=== PATIENT | female | born 1930 | race Caucasian/White ===

== ENCOUNTER → 2019-05-29 | Outpatient (CLI) | payer MEDICARE ==
[~2019-05-29] MED LIST: IOHEXOL-350 50ML VIAL IV ONE
== END | disposition home or self-care (01) ==
LOC: RAH 08:56
PROVIDERS: ATTEND Internal Medicine
DX: M47.22 Other spondylosis with radiculopathy, cervical region (principal); M47.814 Spondylosis without myelopathy or radiculopathy, thoracic region; I70.0 Atherosclerosis of aorta; M48.04 Spinal stenosis, thoracic region; M25.78 Osteophyte, vertebrae; M48.02 Spinal stenosis, cervical region
CPT/HCPCS: 72127; 72130; Q9967

== ENCOUNTER → 2021-07-11 | Outpatient (CLI) | payer MEDICARE ==
[~2021-07-11] MED LIST changes: +IOHEXOL 350 MG/ML 100ML INFUS..BTL IV ONE
== END | disposition home or self-care (01) ==
LOC: RAH 08:04
PROVIDERS: ATTEND Psychiatry & Neurology Neurology
DX: G31.9 Degenerative disease of nervous system, unspecified (principal); J44.9 Chronic obstructive pulmonary disease, unspecified; K57.30 Diverticulosis of large intestine without perforation or abscess without bleeding; R59.0 Localized enlarged lymph nodes; I51.7 Cardiomegaly
CPT/HCPCS: 70470; 71260; 74177; Q9967 ×2

== ENCOUNTER 2021-08-01 15:42 | Emergency (ER) | payer MEDICARE ==
[~2021-08-01] VITALS: Ht 160 cm; Wt 74.8 kg
[2021-08-01] MEDS ORDERED: LACTULOSE 20 GM/30 ML UDCUP PO ONE (16:00)
[2021-08-01 16:38] LABS: BASOPHILS % (AUTO) 0.3 % (0.0-5.0); EOSINOPHILS % (AUTO) 0.6 % (0.0-8.0); HEMATOCRIT 36.9 % (36-48); MEAN CORPUSCULAR HGB CONC 33.3 g/dL (32.0-36.0); MEAN CORPUSCULAR VOLUME 92.9 fL (79-99); MONOCYTES % (AUTO) 10.1 % (3.0-13.0); NEUTROPHILS % (AUTO) 83.6 % (40.0-77.0); PLATELET COUNT (AUTO) 223 K/uL (130-400); RED BLOOD CELL COUNT(AUTO) 3.97 MIL/uL (4.00-5.50); RED CELL DISTRIBUTION WIDTH 13.3 % (11.0-15.5); WHITE BLOOD COUNT (AUTO) 10.8 K/uL (4.8-10.8)
[2021-08-01 16:56] LABS: CARBON DIOXIDE 27 mmol/L (21-32); CHLORIDE 103 mmol/L (101-111); CREATININE 1.5 mg/dL (0.5-1.5); GLOMERULAR FILTR. RATE CALC 35 mL/min (>60); GLUCOSE,RANDOM 102 mg/dL (70-105); POTASSIUM 4.4 mmol/L (3.5-5.1); SODIUM SERUM 140 mmol/L (136-145); UREA NITROGEN, BLOOD 29 mg/dL (7-18)
[2021-08-01 17:00] LABS: ALANINE AMINOTRANSFERASE 21 U/L (12-78); ALBUMIN 3.3 g/dL (3.5-5.0); ASPARTATE AMINOTRANSFERASE 13 U/L (10-37); BILIRUBIN,TOTAL 0.6 mg/dL (0.2-1.0); TOTAL PROTEIN, SERUM 6.9 g/dL (6.0-8.3)
[2021-08-01 17:01] LABS: LIPASE < 50 U/L (114-286)
[2021-08-01 18:00] VITALS: BP 136/78
[2021-08-01] MEDS ORDERED: DICY20TA2 PO (18:03)
[2021-08-01] MEDS ORDERED: LACT10SO9 PO (18:03)
== END 2021-08-01 18:25 | disposition home or self-care (01) ==
LOC: EDH 15:42
DX: K59.00 Constipation, unspecified (principal); I48.91 Unspecified atrial fibrillation; Z88.5 Allergy status to narcotic agent
CPT/HCPCS: 36415; 74176; 80053; 83690; 85025

== ENCOUNTER 2021-08-04 10:37 | Inpatient (IN) | payer MEDICARE ==
[~2021-08-04] VITALS: Ht 160 cm; Wt 84.1 kg
[~2021-08-04 10:37] MED LIST changes: +DICY20TA2 PO; -IOHEXOL 350 MG/ML 100ML INFUS..BTL IV ONE; -IOHEXOL-350 50ML VIAL IV ONE; +LACT10SO9 PO
[2021-08-04 11:15] LABS: BASOPHILS % (AUTO) 0.3 % (0.0-5.0); EOSINOPHILS % (AUTO) 0.9 % (0.0-8.0); HEMATOCRIT 35.9 % (36-48); LYMPHOCYTES % (AUTO) 3.6 % (21.0-51.0); MEAN CORPUSCULAR HEMOGLOBIN 31.1 pg (27.0-33.0); MEAN CORPUSCULAR HGB CONC 33.4 g/dL (32.0-36.0); MONOCYTES % (AUTO) 8.8 % (3.0-13.0); NEUTROPHILS % (AUTO) 85.9 % (40.0-77.0); PLATELET COUNT (AUTO) 245 K/uL (130-400); RED BLOOD CELL COUNT(AUTO) 3.86 MIL/uL (4.00-5.50); WHITE BLOOD COUNT (AUTO) 10.6 K/uL (4.8-10.8)
[2021-08-04 11:20] LABS: CREATININE 1.9 mg/dL (0.5-1.5); POTASSIUM 4.4 mmol/L (3.5-5.1)
[2021-08-04 11:58] LABS: APPEARANCE,URINE TURBID (CLEAR); BILIRUBIN,URINE SMALL (NEGATIVE); GLUCOSE, URINE (UA) NEGATIVE (NEGATIVE); KETONES,URINE 5 mg/dL (NEGATIVE); LEUKOCYTE ESTERASE ,URINE NEGATIVE (NEGATIVE); NITRATE,URINE POSITIVE (NEGATIVE); OCCULT BLOOD,URINE LARGE (NEGATIVE); PH,URINE 6.5 (5.0-8.0); PROTEIN,URINE >=300 mg/dL (NEGATIVE); UROBILINOGEN,URINE 0.2 mg/dL (0.2-1.0)
[2021-08-04 12:00] LABS: COLOR,URINE RED (YELLOW)
[2021-08-04 12:02] LABS: ALBUMIN 3.3 g/dL (3.5-5.0); BILIRUBIN,TOTAL 0.4 mg/dL (0.2-1.0); TOTAL PROTEIN, SERUM 7.1 g/dL (6.0-8.3)
[2021-08-04 12:04] LABS: RBC,URINE TNTC /HPF (0-1)
[2021-08-04 12:05] LABS: BACTERIA,URINE Rare /HPF (None Seen); SQUAMOUS EPITHELIAL CELL,UR Rare /HPF (0-2)
[2021-08-04 13:24] LABS: INR 3.48 (0.85-1.15); PROTHROMBIN TIME 33.9 SEC (9.6-11.6)
[2021-08-04 13:25] LABS: PARTIAL THROMBOPLASTIN TIME 68.4 SEC (26.3-35.5)
[2021-08-04] MEDS ORDERED: WARF-57 PO (14:27)
[2021-08-04] MEDS ORDERED: WARF7.5T49 PO (14:27)
[2021-08-04] MEDS ORDERED: CARB-38 PO (14:27)
[2021-08-04 16:00] VITALS: BP 149/62
[2021-08-04] MEDS ORDERED: ACETAMINOPHEN 325 MG TAB PO PRN (16:00)
[2021-08-04] MEDS ORDERED: DICYCLOMINE HCL 20 MG TAB PO PRN (18:30)
[2021-08-04] MEDS ORDERED: LACTULOSE 20 GM/30 ML UDCUP PO PRN (18:30)
[2021-08-04] MEDS: ACETAMINOPHEN 325 MG TAB PO PRN (18:40)
[2021-08-04 20:00] VITALS: BP 109/40
[2021-08-04] MEDS ORDERED: DEXTROSE 5 %-0.45 % NACL 1,000 ML IV SCH (21:30)
[2021-08-04] MEDS: CARBIDOPA-LEVODOPA 25-100 TAB PO SCH (21:34)
[2021-08-05] VITALS: BP 100/40
[2021-08-05 03:51] LABS: BASOPHILS % (AUTO) 0.2 % (0.0-5.0); EOSINOPHILS % (AUTO) 1.9 % (0.0-8.0); HEMATOCRIT 32.1 % (36-48); LYMPHOCYTES % (AUTO) 8.6 % (21.0-51.0); MEAN CORPUSCULAR HEMOGLOBIN 30.2 pg (27.0-33.0); MEAN CORPUSCULAR HGB CONC 32.4 g/dL (32.0-36.0); MEAN CORPUSCULAR VOLUME 93.3 fL (79-99); PLATELET COUNT (AUTO) 232 K/uL (130-400); RED BLOOD CELL COUNT(AUTO) 3.44 MIL/uL (4.00-5.50); RED CELL DISTRIBUTION WIDTH 13.1 % (11.0-15.5); WHITE BLOOD COUNT (AUTO) 8.7 K/uL (4.8-10.8)
[2021-08-05 03:59] LABS: CREATININE 2.3 mg/dL (0.5-1.5); POTASSIUM 4.4 mmol/L (3.5-5.1)
[2021-08-05 04:00] VITALS: BP 141/52
[2021-08-05 04:01] LABS: PARTIAL THROMBOPLASTIN TIME 75.2 SEC (26.3-35.5)
[2021-08-05 04:20] LABS: INR 3.82 (0.85-1.15); PROTHROMBIN TIME 36.9 SEC (9.6-11.6)
[2021-08-05 08:00] VITALS: BP 120/53
[2021-08-05] MEDS: CARBIDOPA-LEVODOPA 25-100 TAB PO SCH ×3 (09:03→20:13)
[2021-08-05 11:44] VITALS: BP 112/46
[2021-08-05] MEDS: LACTATED RINGERS 1000ML 1,000 ML IV SCH (15:54)
[2021-08-05 16:00] VITALS: BP 122/70
[2021-08-05 20:00] VITALS: BP 114/49
[2021-08-05] MEDS: ACETAMINOPHEN 325 MG TAB PO PRN (20:12)
[2021-08-06] VITALS: BP 114/49
[2021-08-06] MEDS: ACETAMINOPHEN 325 MG TAB PO PRN ×2 (02:38→13:19)
[2021-08-06 03:45] LABS: HEMATOCRIT 33.8 % (36-48); MEAN CORPUSCULAR HEMOGLOBIN 30.8 pg (27.0-33.0); MEAN CORPUSCULAR HGB CONC 32.8 g/dL (32.0-36.0); MEAN CORPUSCULAR VOLUME 93.9 fL (79-99); RED BLOOD CELL COUNT(AUTO) 3.6 MIL/uL (4.00-5.50); WHITE BLOOD COUNT (AUTO) 8.4 K/uL (4.8-10.8)
[2021-08-06 03:56] LABS: CREATININE 1.9 mg/dL (0.5-1.5); POTASSIUM 3.9 mmol/L (3.5-5.1)
[2021-08-06 03:58] LABS: INR 2.5 (0.85-1.15); PROTHROMBIN TIME 25.1 SEC (9.6-11.6)
[2021-08-06 04:00] VITALS: BP 113/46
[2021-08-06 04:00] LABS: PARTIAL THROMBOPLASTIN TIME 65.5 SEC (26.3-35.5)
[2021-08-06] MEDS: LACTATED RINGERS 1000ML 1,000 ML IV SCH ×3 (05:29→21:00)
[2021-08-06 08:00] VITALS: BP 125/58
[2021-08-06] MEDS: CARBIDOPA-LEVODOPA 25-100 TAB PO SCH ×3 (08:15→21:04)
[2021-08-06 11:41] VITALS: BP 124/73
[2021-08-06] MEDS ORDERED: LEVOFLOXACIN 500 MG/D5W 100 ML 100 ML IV SCH (14:00)
[2021-08-06] MEDS ORDERED: CEFTRIAXONE 1G VIAL IVP SCH (14:00)
[2021-08-06 16:00] VITALS: BP 118/53
[2021-08-06 20:00] VITALS: BP 131/63
[2021-08-07] VITALS (23 sets, daily range): BP systolic 114–161; BP diastolic 55–94
[2021-08-07] MEDS: ACETAMINOPHEN 325 MG TAB PO PRN ×3 (01:58→23:05)
[2021-08-07 04:46] LABS: HEMATOCRIT 30.9 % (36-48); MEAN CORPUSCULAR HEMOGLOBIN 30.3 pg (27.0-33.0); MEAN CORPUSCULAR HGB CONC 32.7 g/dL (32.0-36.0); MEAN CORPUSCULAR VOLUME 92.8 fL (79-99); RED BLOOD CELL COUNT(AUTO) 3.33 MIL/uL (4.00-5.50); RED CELL DISTRIBUTION WIDTH 12.9 % (11.0-15.5); WHITE BLOOD COUNT (AUTO) 8.9 K/uL (4.8-10.8)
[2021-08-07 04:58] LABS: CREATININE 1.8 mg/dL (0.5-1.5)
[2021-08-07] MEDS: LACTATED RINGERS 1000ML 1,000 ML IV SCH ×2 (07:00→17:19)
[2021-08-07 07:19] LABS: INR 1.99 (0.85-1.15); PROTHROMBIN TIME 20.4 SEC (9.6-11.6)
[2021-08-07 07:20] LABS: PARTIAL THROMBOPLASTIN TIME 60.1 SEC (26.3-35.5)
[2021-08-07] MEDS: CARBIDOPA-LEVODOPA 25-100 TAB PO SCH ×3 (09:00→21:09)
[2021-08-07] MEDS ORDERED: IOHEXOL-350 50ML VIAL IV ONE (13:49)
[2021-08-07] MEDS ORDERED: LIDOCAINE PF 100MG/5ML (2%) SYRINGE 5ML ONE (13:54)
[2021-08-07] MEDS ORDERED: DEXAMETHASONE SOD PHOSPHATE 10MG/ML 1ML VIAL ONE (13:54)
[2021-08-07] MEDS ORDERED: SUCCINYLCHOLINE 200MG/10ML SYR ONE (13:54)
[2021-08-07] MEDS ORDERED: FENTANYL CITRATE PF 50 MCG/1 ML 2ML VIAL ONE (13:55)
[2021-08-07] MEDS ORDERED: ONDANSETRON 4MG INJ ONE (13:55)
[2021-08-07] MEDS ORDERED: PROPOFOL 10 MG/ML 20ML VIAL IV ONE (13:55)
[2021-08-07] MEDS ORDERED: MEPERIDINE-PF 25 MG/ML SYG ONE (13:56)
[2021-08-07] MEDS ORDERED: GLYCOPYRROLATE 1 MG/5 ML SYRINGE ONE (14:29)
[2021-08-07] MEDS ORDERED: PHENYLEPHRINE HCL 10 MG/ML 1ML VIAL IV ONE (14:35)
[2021-08-07] MEDS ORDERED: 0.9%NACL 10ML VIAL ONE (14:35)
[2021-08-07] MEDS ORDERED: PHENAZOPYRIDINE HCL 200 MG TABLET PO SCH (17:30)
[2021-08-08] VITALS: BP 120/69
[2021-08-08] MEDS: LACTATED RINGERS 1000ML 1,000 ML IV SCH (03:12)
[2021-08-08 04:00] VITALS: BP 130/49
[2021-08-08] MEDS: ACETAMINOPHEN 325 MG TAB PO PRN (05:38)
[2021-08-08 06:01] LABS: HEMATOCRIT 34.7 % (36-48); MEAN CORPUSCULAR HEMOGLOBIN 30.2 pg (27.0-33.0); MEAN CORPUSCULAR VOLUME 94.6 fL (79-99); RED BLOOD CELL COUNT(AUTO) 3.67 MIL/uL (4.00-5.50); RED CELL DISTRIBUTION WIDTH 12.8 % (11.0-15.5); WHITE BLOOD COUNT (AUTO) 8.8 K/uL (4.8-10.8)
[2021-08-08 06:33] LABS: ALBUMIN 3.1 g/dL (3.5-5.0); BILIRUBIN,TOTAL 0.5 mg/dL (0.2-1.0); CREATININE 1.6 mg/dL (0.5-1.5); POTASSIUM 3.9 mmol/L (3.5-5.1); TOTAL PROTEIN, SERUM 6.8 g/dL (6.0-8.3)
[2021-08-08 06:48] LABS: INR 1.8 (0.85-1.15); PROTHROMBIN TIME 18.6 SEC (9.6-11.6)
[2021-08-08] MEDS ORDERED: PHENAZOPYRIDINE HCL 200 MG TABLET ONE (07:21)
[2021-08-08 08:00] VITALS: BP 161/60
[2021-08-08] MEDS: CARBIDOPA-LEVODOPA 25-100 TAB PO SCH (08:01)
[2021-08-08] MEDS ORDERED: PHENAZOPYRIDINE HCL 200 MG TABLET PO SCH (09:00)
[2021-08-08 10:11] VITALS: BP 131/64
[2021-08-08] MEDS ORDERED: LEVOFLOXACIN 250 MG/D5W 50ML 50 ML IVPB SCH (14:00)
[2021-08-08] MEDS ORDERED: LEVOFLOXACIN 500 MG/D5W 100 ML 100 ML IV SCH (14:00)
== END 2021-08-08 12:00 | disposition home or self-care (01) | DRG 660 ==
LOC: EDH 10:37 → EDHIP 13:45 → 3CH 16:05
PROVIDERS: ADMIT Internal Medicine; ATTEND Internal Medicine
PROC: 0T778DZ Dilation of Left Ureter with Intraluminal Device, Via Natural or Artificial Opening Endoscopic (ICD-10-PCS; principal; 2021-08-07 08:00)
PROC: BT141ZZ Fluoroscopy of Kidneys, Ureters and Bladder using Low Osmolar Contrast (ICD-10-PCS; 2021-08-07 08:00)
DX: N13.6 Pyonephrosis (principal); S37.019A Minor contusion of unspecified kidney, initial encounter; N17.9 Acute kidney failure, unspecified; R31.0 Gross hematuria; I48.91 Unspecified atrial fibrillation; N18.9 Chronic kidney disease, unspecified; Z96.649 Presence of unspecified artificial hip joint; Z77.22 Contact with and (suspected) exposure to environmental tobacco smoke (acute) (chronic); G20 Parkinson's disease; I12.9 Hypertensive chronic kidney disease with stage 1 through stage 4 chronic kidney disease, or unspecified chronic kidney disease; K59.00 Constipation, unspecified; N95.2 Postmenopausal atrophic vaginitis; Y93.89 Activity, other specified; Y92.89 Other specified places as the place of occurrence of the external cause; Y99.8 Other external cause status; Z88.5 Allergy status to narcotic agent; Z79.01 Long term (current) use of anticoagulants; Z95.0 Presence of cardiac pacemaker
CPT/HCPCS: 36415; 74176; 74420; 80048; 80053; 81001; 82550; 83690; 84165; 84484; 85025; 85027; 85610; 85730; 87077; 87088; 87186; A4344; C1758; C2617; G0378; J0330; J1100; J1956; J2001; J2175; J2370; J2405; J2704; J3010; J3490; J7042; J7120; Q9967

== ENCOUNTER 2021-08-28 07:54 | Day surgery (SDC) | payer MEDICARE ==
[2021-08-22 14:42] LABS: BASOPHILS % (AUTO) 0.4 % (0.0-5.0); EOSINOPHILS % (AUTO) 5.1 % (0.0-8.0); HEMATOCRIT 35.7 % (36-48); LYMPHOCYTES % (AUTO) 8.8 % (21.0-51.0); MEAN CORPUSCULAR HEMOGLOBIN 30.5 pg (27.0-33.0); MEAN CORPUSCULAR HGB CONC 31.7 g/dL (32.0-36.0); MEAN CORPUSCULAR VOLUME 96.2 fL (79-99); NEUTROPHILS % (AUTO) 76.4 % (40.0-77.0); PLATELET COUNT (AUTO) 247 K/uL (130-400); RED BLOOD CELL COUNT(AUTO) 3.71 MIL/uL (4.00-5.50); RED CELL DISTRIBUTION WIDTH 13.7 % (11.0-15.5); WHITE BLOOD COUNT (AUTO) 6.9 K/uL (4.8-10.8)
[2021-08-22 14:57] LABS: INR 1.01 (0.85-1.15)
[2021-08-22 15:00] LABS: CREATININE 1.1 mg/dL (0.5-1.5); POTASSIUM 4.5 mmol/L (3.5-5.1)
[2021-08-25 13:41] VITALS: BP 123/55
[2021-08-28] VITALS (16 sets, daily range): BP systolic 118–158; BP diastolic 48–83
[~2021-08-28] VITALS: Ht 160 cm; Wt 72.6 kg
[2021-08-28] MEDS: LEVOFLOXACIN 500 MG/D5W 100 ML 100 ML IV SCH ×2 (06:00→09:35)
[~2021-08-28 07:54] MED LIST changes: +CARB-38 PO; -DICY20TA2 PO; -LACT10SO9 PO
[2021-08-28] MEDS ORDERED: LACTATED RINGERS 1000ML 1,000 ML IV ONE (07:57)
[2021-08-28] MEDS ORDERED: PROPOFOL 10 MG/ML 20ML VIAL IV ONE (09:41)
[2021-08-28] MEDS ORDERED: ROCURONIUM 10MG/1ML SYR 10 MG/ML ML ONE (09:41)
[2021-08-28] MEDS ORDERED: ONDANSETRON 4MG INJ ONE (09:41)
[2021-08-28] MEDS ORDERED: LIDOCAINE PF 100MG/5ML (2%) SYRINGE 5ML ONE (09:41)
[2021-08-28] MEDS ORDERED: IOHEXOL-350 50ML VIAL IV ONE (09:45)
[2021-08-28] MEDS ORDERED: EPHEDRINE SULFATE 50 MG/ML AMPULE ONE (10:13)
[2021-08-28] MEDS ORDERED: GLYCOPYRROLATE 1 MG/5 ML SYRINGE ONE (10:20)
[2021-08-28] MEDS ORDERED: NEOSTIGMINE 5MG/5ML SYR IV ONE (10:20)
[2021-08-28] MEDS ORDERED: FENTANYL CITRATE PF 50 MCG/1 ML 2ML VIAL ONE (10:22)
[2021-08-28] MEDS ORDERED: PHENAZOPYRIDINE HCL 200 MG TABLET ONE (11:28)
== END 2021-08-28 12:00 | disposition home or self-care (01) ==
LOC: DAH 07:54
PROVIDERS: ATTEND Urology
DX: Z46.6 Encounter for fitting and adjustment of urinary device (principal); R31.0 Gross hematuria; N95.2 Postmenopausal atrophic vaginitis; Z20.822 Contact with and (suspected) exposure to COVID-19; K59.00 Constipation, unspecified; G20 Parkinson's disease; Z79.01 Long term (current) use of anticoagulants; Z90.710 Acquired absence of both cervix and uterus
CPT/HCPCS: 36415; 52310; 74420; 80048; 85025; 85610; 87635; 93005; A4215; A4221; A4222; A4223; A4344; A4358; A4600; A4663; A6260; C1758 ×2; C1769; C9803; J2001; J2405; J2704; J2710; J3010; J3490 ×2; J7120 ×2; Q9967; J1956